=== PATIENT | female | born 1985 | race African-American/Black ===

== ENCOUNTER 2017-02-20 10:19 | Inpatient (IN) | payer OTHER ==
--- NOTE | 2017-02-20 10:44 | History and Physical Report ---
History of Present Illness Date of examination: 02/20/17 Date of admission: 02/20/17 10:24 Chief complaint: Painful contractions History of present illness: 31-year-old at 37 weeks presents in active labor, she is a [facility] patient. Patient is of Citizen Of [place] ancestry, no Filipino history from interpretor. She is 8 cm dilated Past History Past Medical History: no pertinent history Past Surgical History: no surgical history [employer] History: denies: chlamydia, gonorrhea, hepatitis B, hepatitis C, herpes, HIV , syphilis, trichomonas Social history: full code. denies: smoking, alcohol abuse, prescription drug abuse, IV drug use - Obstetrical History Expected Date of Delivery: 03/13/17 Actual Gestation: 37 Week(s) 0 Day(s) : 1 Para: 0 Review of Systems Constitutional: no weight gain, no fever, no chills, no sweats Cardiovascular: no chest pain, no orthopnea, no syncope, no lightheadedness, no dyspnea on exertion, no high blood pressure, no decreased exercise tolerance Respiratory: no cough, no cough with sputum, no hemoptysis, no shortness of breath, no dyspnea on exertion Gastrointestinal: abdominal pain, no nausea, no vomiting, no diarrhea, no indigestion Genitourinary: contractions, no vaginal bleeding, no vaginal discharge, no leakage of fluid - Physical Exam Abdomen: Positive: normal appearance, soft. Negative: distention, tenderness, guarding, rigidity Genitourinary (Female): Positive: normal external genitalia Uterus: Positive: enlarged (EFW ~ 3500) Adnexa: both: normal Extremities: Positive: normal - Obstetrical FHR: category 1 Cervical Dilatation: 8 Cervical Effacement Percentage: 100 station: 0 Results All other labs normal. Assessment and Plan A: 31-year-old at 37 weeks in active labor -Cat 1 tracing P: -Admit -Routine labs -Expectant mgt -Anticipate normal vaginal delivery - Patient Problems (1) 37 weeks gestation of Current Visit: Yes Status: Acute (2) Active labor at term Current Visit: Yes Status: Acute
[2017-02-20] MEDS ORDERED: ePHEDrine SULFATE IV PRN (10:47)
[2017-02-20] MEDS ORDERED: ZOFRAN IV PRN (10:47)
[2017-02-20] MEDS ORDERED: SUBLIMAZE IV PRN ×2 (10:47→10:51)
[2017-02-20] MEDS ORDERED: SUBLIMAZE ONE (10:51)
[2017-02-20] MEDS ORDERED: PITOCin/NS 20 UNIT/1000ML DRIP 20,000 MILLIUNITS/1,000 ML BAG IV ONE (10:51)
[2017-02-20] MEDS ORDERED: LACTATED RINGERS 1,000 ML ONE (10:51)
[2017-02-20] MEDS ORDERED: LACTATED RINGERS 1,000 ML IV SCH (11:00)
[2017-02-20 11:53] LABS: Hematocrit 36.5 % (30.3-42.9); Hemoglobin 12.5 gm/dl (10.1-14.3); Mean Corpuscular HGB Conc 34 % (30-34); Mean Corpuscular Hemoglobin 31 pg (28-32); Mean Corpuscular Volume 91 fl (79-97); Platelet Count 353 K/mm3 (140-440); Red Blood Count 4.02 M/mm3 (3.65-5.03); Red Cell Distribution Width 12.8 % (13.2-15.2); White Blood Count 11.7 K/mm3 (4.5-11.0)
[2017-02-20] MEDS ORDERED: PITOCin/NS 20 UNIT/1000ML DRIP 20 UNITS/1,000 ML BAG IV SCH ×2 (12:00→13:00)
[2017-02-20] MEDS ORDERED: XYLOCAINE 2% INFILTRATI ONE ×2 (12:17→14:00)
[2017-02-20] MEDS ORDERED: METHERGINE IM ONE (12:24)
[2017-02-20] MEDS ORDERED: CYTOTEC ONE ×2 (12:38→12:40)
--- NOTE | 2017-02-20 12:46 | Procedure Note ---
OB Delivery Note - Delivery Date of Delivery: 02/20/17 Surgeon: JOSETTE VARGAS Estimated blood loss: 300cc - Vaginal Delivery presentation: vertex, compound ('s hand above) Delivery position: OA Intrapartum events: precipitous labor- <3hr Delivery induction: none Delivery monitor: external FHT, external uterine Route of delivery: Delivery placenta: spontaneous Delivery cord: 3 umbilical vessels Episiotomy: none Delivery laceration: 3rd degree Delivery repair: vicryl Anesthesia: local - Infant A at 1 minute: 8 at 5 minutes: 9 Infant Gender: Female (time of delivery 12:15, infant weight 7 lbs. 0 oz. or 3187 g)
[2017-02-20] MEDS ORDERED: DULCOLAX PR PRN (12:47)
[2017-02-20] MEDS ORDERED: LANSINOH TP PRN (12:47)
[2017-02-20] MEDS ORDERED: ANUCORT-HC PR PRN (12:47)
[2017-02-20] MEDS ORDERED: PHENERGAN PR PRN (12:47)
[2017-02-20] MEDS ORDERED: TYLENOL PO PRN (12:47)
[2017-02-20] MEDS ORDERED: NORCO 5/325 PO PRN (12:47)
[2017-02-20] MEDS ORDERED: TUCKS PAD TP PRN (12:47)
[2017-02-20] MEDS ORDERED: PHENERGAN PO PRN (12:47)
[2017-02-20] MEDS ORDERED: METHERGINE IM PRN (12:47)
[2017-02-20] MEDS ORDERED: BENADRYL PO PRN (12:47)
[2017-02-20] MEDS ORDERED: MILK OF MAGNESIA PO PRN (12:47)
[2017-02-20] MEDS ORDERED: SODIUM CHLORIDE FLUSH SYRINGE 10 ML IV NR (13:00)
[2017-02-20] MEDS ORDERED: CYTOTEC PR ONE ×3 (13:00)
[2017-02-20] MEDS: SENOKOT S PO SCH ×2 (16:33→22:00)
[2017-02-20] MEDS: MOTRIN PO SCH (16:33)
[2017-02-21 01:18] LABS: Hematocrit 27.1 % (30.3-42.9); Hemoglobin 9.1 gm/dl (10.1-14.3)
[2017-02-21] MEDS ORDERED: BOOSTRIX IM ONE (06:00)
[2017-02-21] MEDS: MOTRIN PO SCH ×3 (06:31→18:22)
--- NOTE | 2017-02-21 08:50 | Progress Note ---
Assessment and Plan PPD# 1 P: -Continue routine care -Anticipate discharge in 24-48 hours - Patient Problems (1) 37 weeks gestation of Current Visit: Yes Status: Acute (2) Active labor at term Current Visit: Yes Status: Acute Subjective - Subjective Date of service: 02/21/17 Principal diagnosis: PPD# 1 Interval history: Patient seen and examined, stable doing well. No shortness of breath or chest pain, no fever or chills, adequate bowel bladder function ambulating without difficulty appropriate lochia flow Patient reports: appetite normal, voiding normally, pain well controlled, flatus , ambulating normally, no dizzy ambulation, no nauseated : doing well Objective - Vital Signs Latest vital signs: Vital Signs Temp Pulse Resp BP BP Pulse Ox 02/21/17 06:41 18 02/21/17 06:31 18 02/21/17 01:13 97 F L 79 18 102/55 02/21/17 01:00 18 02/21/17 00:00 18 02/20/17 20:15 98.3 F 69 20 114/65 02/20/17 14:23 62 126/72 02/20/17 14:22 62 98 02/20/17 14:20 62 18 126/72 98 02/20/17 14:17 67 100 02/20/17 14:12 68 99 02/20/17 14:08 61 122/65 02/20/17 14:07 63 98 02/20/17 14:05 63 18 122/65 98 02/20/17 14:02 64 99 02/20/17 13:57 65 98 02/20/17 13:53 74 119/59 02/20/17 13:52 72 98 02/20/17 13:50 74 18 119/59 98 02/20/17 13:47 68 100 02/20/17 13:45 67 112/57 02/20/17 13:42 71 99 02/20/17 13:37 69 98 02/20/17 13:35 67 18 112/57 99 02/20/17 13:32 71 100 02/20/17 13:27 71 99 02/20/17 13:23 79 119/59 02/20/17 13:22 72 100 02/20/17 13:20 79 18 119/59 100 02/20/17 13:17 71 100 02/20/17 13:12 72 100 02/20/17 13:08 73 111/61 02/20/17 13:07 74 98 02/20/17 13:05 73 18 111/61 98 02/20/17 13:02 77 97 02/20/17 12:57 76 98 02/20/17 12:53 79 111/66 02/20/17 12:52 83 97 02/20/17 12:45 97.2 F L 83 18 02/20/17 11:46 84 99 02/20/17 11:13 67 123/62 02/20/17 10:45 97.8 F 67 24 Intake and Output 02/20/17 02/21/17 02/21/17 23:59 07:59 15:59 Intake Total 480 360 Output Total 700 600 Balance -220 -240 Intake: Intake, Free Water 480 360 Output: Urine 700 600 Void 700 600 Other: Total, Output Amount 200 600 - Exam Abdomen: Present: normal appearance, soft. Absent: distention, tenderness, guarding, rigidity - Labs Labs: Abnormal lab results 02/20/17 02/21/17 Range/Units 10:45 00:25 WBC 11.7 H (4.5-11.0) K/mm3 Hgb 9.1 L D (10.1-14.3) gm/dl Hct 27.1 L D (30.3-42.9) % RDW 12.8 L (13.2-15.2) %
--- NOTE | 2017-02-21 08:51 | Discharge Summary ---
Providers - Providers Date of Admission: 02/20/17 10:24 Date of discharge: 02/22/17 Attending physician: JOSETTE VARGAS Primary care physician: [facility] Hospitalization Reason for admission: active labor, IUP at term Delivery: Episiotomy: none Laceration: 3rd degree Incision: dry, intact Other procedures: none complications: none Discharge diagnosis: IUP at term delivered baby: female Hospital course: Uncomplicated course Condition at discharge: Good Disposition: DC-01 TO HOME OR SELFCARE - Discharge Diagnoses (1) (normal spontaneous vaginal delivery) Status: Acute (2) 37 weeks gestation of Status: Acute (3) Active labor at term Status: Acute Plan - Discharge Medications Prescriptions: HYDROcodone/APAP 5-325 [Squire 5/325] 1 each PO Q6HR PRN #10 tablet PRN Reason: Pain Ibuprofen [Motrin 600 MG tab] 600 mg PO Q8H PRN #30 tablet PRN Reason: Pain Multivitamin with Iron [Multivitamins with Iron] 1 each PO DAILY #30 tablet - Provider Discharge Summary Activity: no sex for 6 weeks, no heavy lifting 4 weeks, no strenuous exercise Diet: routine Additional instructions: [] Smoking cessation referral if applicable(refer to patient education folder for contact #) [] Refer to [facility] Booklet Call your doctor immediately for: * Fever > 100.5 * Heavy vaginal bleeding ( >1 pad per hour) * Severe persistent headache * Shortness of breath * Reddened, hot, painful area to leg or breast * Drainage or odor from incision. * Keep incision clean and dry at all times and follow doctor's instructions regarding bathing/showering - Follow up plan Follow up: PRIMARY CAREMD [Primary Care Provider] - 6 Weeks
[2017-02-21] MEDS ORDERED: PRENATAL VITAMIN PO SCH (10:00)
[2017-02-21] MEDS: COLACE PO SCH ×2 (11:00)
[2017-02-21] MEDS: FEOSOL PO SCH ×2 (11:00)
[2017-02-21] MEDS ORDERED: Fluarix Quad 2017-2018(36 MOS+ IM ONE (12:00)
[2017-02-21 17:59] VITALS: BP 110/70
== END 2017-02-21 19:40 | disposition home or self-care (01) | DRG 775 ==
LOC: TRG 10:19 → UNDOADMIN 10:24 → LD 10:24 → OB 14:43
PROVIDERS: ADMIT Obstetrics & Gynecology Gynecology; ATTEND Obstetrics & Gynecology Gynecology
PROC: 10E0XZZ Delivery of Products of Conception, External Approach (ICD-10-PCS; principal; 2017-02-20)
PROC: 0DQR0ZZ Repair Anal Sphincter, Open Approach (ICD-10-PCS; 2017-02-20)
PROC: 3E0234Z Introduction of Serum, Toxoid and Vaccine into Muscle, Percutaneous Approach (ICD-10-PCS; 2017-02-20)
DX: O62.3 Precipitate labor (principal); O70.20 Third degree perineal laceration during delivery, unspecified; Z3A.37 37 weeks gestation of pregnancy; Z37.0 Single live birth
CPT/HCPCS: 36415; 85014; 85018; 85027; 86592; 86706; 86762; 86850; 86900; 86901; 90471; 90715; 99211; G0463; J2210; J2590; J3010; J7120